=== PATIENT | female | born 1985 | race Hispanic/Latino ===

== ENCOUNTER 2018-07-18 00:39 | Emergency (ER) | payer BC ==
[2018-07-18 00:57] VITALS: BMI 21.1
[2018-07-18] MEDS ORDERED: Magnesium Sulfate 2 gm/50 ml 2 GM/50 ML BAG IV STA (01:15)
[2018-07-18] MEDS ORDERED: Albuterol-Ipratrop 3 mg / 0.5 (3 ml) UD INH STA (01:15)
[2018-07-18] MEDS ORDERED: guaiFENesin 200 mg/10 ml Syrup UD PO STA (01:21)
--- NOTE | 2018-07-18 01:25 | ED PDOC ---
HPI: SOB/CHF/COPD Time Seen by Provider: 07/18/18 00:57 Chief Complaint (Nursing): Respiratory Distress Chief Complaint (Provider): Respiratory Distress History Per: Patient History/Exam Limitations: no limitations Onset/Duration Of Symptoms: Days (x1 month) Current Symptoms Are (Timing): Intermittent Episodes Exacerbating Factor(s): Laying Flat Additional Complaint(s): Patient is a 32 y/o female with history of asthma who presents to the ED complaining of coughing and wheezing for the past month. Of note patient is currently 12 weeks (.) Patient states that her symptoms are intermittent and are worse at night when she is lying down. She also reports having anterior chest pain when she coughs as well as when she breathes deeply. Patient's OB recently gave her treatment with Zithromax z-lilo which provided her with some relief. Patient was evaluated by both her PMD and her speck dyer. She was formerly on Symbicort and Singulair but her speck dyer discontinued them when she became . She states her cough is productive of clear phlegm. Patient denies fever and hemoptysis. Past Medical History Reviewed: Historical Data, Nursing Documentation, Vital Signs Vital Signs: Last Vital Signs Temp 98.1 F 07/18/18 00:57 Pulse 108 H 07/18/18 00:57 Resp 18 07/18/18 00:57 BP 100/69 07/18/18 00:57 Pulse Ox 98 07/18/18 00:57 - Medical History PMH: Asthma - Family History Family History: States: Unknown Family Hx - Social History Current smoker - smoking cessation education provided: No Alcohol: None Drugs: Denies - Home Medications Home Medications: Ambulatory Orders Medication Instructions Recorded Albuterol Sulfate [Proair Hfa] 0.09 mg IH Q6 PRN #1 inh 07/18/18 Guaifenesin [Guaifenesin ER] 600 mg PO Q12 PRN #12 tab.er.12h 07/18/18 predniSONE [predniSONE Tab] 60 mg PO QAM #12 tab 07/18/18 - Allergies Allergies/Adverse Reactions: Allergies Allergy/AdvReac Type Severity Reaction Status Date / Time No Known Allergies Allergy Verified 07/18/18 00:56 Review of Systems ROS Statement: Except As Marked, All Systems Reviewed And Found Negative Constitutional: Negative for: Fever Cardiovascular: Positive for: Chest Pain Respiratory: Positive for: Cough, Wheezing. Negative for: Hemoptysis Physical Exam - Reviewed Nursing Documentation Reviewed: Yes Vital Signs Reviewed: Yes - Physical Exam Appears: Positive for: Non-toxic, No Acute Distress Head Exam: Positive for: ATRAUMATIC, NORMOCEPHALIC Skin: Positive for: Normal Color, Warm, Dry Eye Exam: Positive for: EOMI, Normal appearance, PERRL ENT: Positive for: Other (post nasal drip) Neck: Positive for: Normal, Painless ROM, Supple Cardiovascular/Chest: Positive for: Regular Rate, Rhythm, Tachycardia. Negative for: Murmur Respiratory: Positive for: Decreased Breath Sounds (decreased air entry), Wheezing (bilateral diffuse expiratory wheezing), Respiratory Distress (mild) Gastrointestinal/Abdominal: Positive for: Normal Exam, Soft. Negative for: Tenderness Extremity: Positive for: Normal ROM. Negative for: Pedal Edema, Deformity Neurologic/Psych: Positive for: Alert, Oriented. Negative for: Motor/Sensory Deficits - Laboratory Results Result Diagrams: 07/18/18 01:40 07/18/18 01:40 - ECG O2 Sat by Pulse Oximetry: 98 (RA) Pulse Ox Interpretation: Normal - Critical Care Total Time (In Min): 30 Documented Critical Care: Time excludes all time spent performint seperately b illable procedures Medical Decision Making Medical Decision Making: Time: 01:14 Impression: 32 y/o female with acute exacerbation of asthma in setting of preg basilio. Initial Plan: Beta-HCG CMP Magnesium CBC w/ diff Duoneb 3 ml (x3) Magnesium sulfate Robitussin Solu-medrol 125 mg Tylenol 650 mg Influenza A B Time: 03:11 Labs reviewed no clinically significant abnormalities. Patient reports significant improvement of symptoms. On reexamination wheezing has largely resolved. Patient has good air entry. Patient was given return precautions and is to otherwise follow up with speck dyer and PMD. Diagnosis is asthmatic bronchitis. Condition is improved. Scribe Attestation: Documented by Basilio Stark, acting as a scribe for Jayden Reid MD. Provider Scribe Attestation: All medical record entries made by the Scribe were at my direction and personally dictated by me. I have reviewed the chart and agree that the record accurately reflects my personal performance of the history, physical exam, medical decision making, and the department course for this patient. I have also personally directed, reviewed, and agree with the discharge instructions and disposition. Disposition - Clinical Impression Clinical Impression: Asthmatic bronchitis - Patient ED Disposition Is Patient to be Admitted: No - Disposition Disposition: Routine/Home Disposition Time: 03:11 Condition: IMPROVED Prescriptions: Albuterol Sulfate [Proair Hfa] 0.09 mg IH Q6 PRN #1 inh PRN Reason: Shortness Of Breath Guaifenesin [Guaifenesin ER] 600 mg PO Q12 PRN #12 tab.er.12h PRN Reason: Cough predniSONE [predniSONE Tab] 60 mg PO QAM #12 tab Instructions: Asthma and Forms: [facility] (Thai)
[2018-07-18] MEDS ORDERED: guaiFENesin 100 mg/5 ml Syrup UD ONE (01:28)
[2018-07-18] MEDS ORDERED: Magnesium Sulfate 2 gm/50 ml 2 GM/50 ML BAG ONE (01:29)
[2018-07-18] MEDS ORDERED: Albuterol-Ipratrop 3 mg / 0.5 (3 ml) UD ONE ×2 (01:29→01:59)
[2018-07-18 01:52] LABS: BASO # 0.1 K/uL (0.0-0.2); BASO % 0.7 % (0.0-2.0); EOS # 0.7 K/uL (0.0-0.7); HEMOGLOBIN 13.5 g/dL (12.0-16.0); LYMPH # 1.7 K/uL (1.0-4.3); LYMPH % 14.8 % (20.0-40.0); MEAN CELL VOLUME 89.6 fl (81.0-99.0); MEAN CORPUSCULAR HEMOGLOBIN 31.6 pg (27.0-31.0); MEAN CORPUSCULAR HGB CONC 35.2 g/dL (33.0-37.0); MEAN PLATELET VOLUME 8.5 fl (7.2-11.7); MONO # 0.9 K/uL (0.0-0.8); MONO % 7.6 % (0.0-10.0); NEUT % 70.9 % (50.0-75.0); NRBC % 0.1 % (0.0-0.0); RBC 4.26 Mil/uL (3.80-5.20); RED CELL DISTRIBUTION WIDTH 12.4 % (11.5-14.5); WHITE BLOOD COUNT 11.3 K/uL (4.8-10.8)
[2018-07-18 01:59] LABS: ALB/GLOB RATIO 1.2 (1.0-2.1); ALBUMIN 3.8 g/dL (3.5-5.0); ALT/SGPT 15 U/L (9-52); AST/SGOT 24 U/L (14-36); BLOOD UREA NITROGEN 5 mg/dl (7-17); CALCIUM 9.3 mg/dL (8.4-10.2); GFR NON-AFRICAN AMERICAN > 60
[2018-07-18 03:19] VITALS: BP 100/50; PULSE 97; RESP 21; TEMP 97.9; O2SAT 96
== END 2018-07-18 03:19 | disposition home or self-care (01) ==
LOC: H.ER 00:39
DX: J45.909 Unspecified asthma, uncomplicated (principal); J44.9 Chronic obstructive pulmonary disease, unspecified; O99.511 Diseases of the respiratory system complicating pregnancy, first trimester; J45.901 Unspecified asthma with (acute) exacerbation; Z79.899 Other long term (current) drug therapy
CPT/HCPCS: 80053; 83735; 84702; 85025; 87804; 96365; 96375; 99284; J2930